=== PATIENT | male | born 1935 | race Caucasian/White ===

== ENCOUNTER 2017-12-23 07:37 | Day surgery (SDC) | payer MEDICARE, SELFPAY ==
--- NOTE | 2017-12-23 07:41 | PM.PREOP ---
Pre-operative Note Interval Note Pre-op Check: Yes History & Physical Reviewed by Physician Changes: No
[2017-12-23 10:37] VITALS: BP 154/82; PULSE 70; RESP 16; TEMP 36.3; O2SAT 95; BMI 28.1
[2017-12-23] MEDS: PROPARACAINE 0.5% OPHTH SOL 2 DROPS EYE-OP (10:45)
[2017-12-23] MEDS: CATARACT EYE COMPOUND (10 DROPS/SYRINGE) 3 DROPS EYE-OP (10:45)
[2017-12-23] MEDS: HYALURONATE SODIUM 10 MG/ML SYRINGE INJ (11:41)
[2017-12-23] MEDS: CHONDROIDTIN/SOD HYALURONATE 1.05 ML SYRINGE INTRAOCULA (11:41)
[2017-12-23] MEDS: BALANCED SALT IRRIG SOLN NO.2 15 ML IRRIG.SOLN IRR (11:41)
[2017-12-23] MEDS: OFLOXACIN 0.3% OPHTH 5 ML 2 DROPS EYE-RIGHT (11:42)
[2017-12-23] MEDS: NEOMYCIN/POLY/DEX OPHTH OINT 1 APPLIC EYE-RIGHT (11:42)
[2017-12-23] MEDS: MOXIFLOXACIN OPHTH DROPS 3 ML BOTTLE 2 DROPS INJ (11:42)
[2017-12-23] MEDS: LIDOCAINE 1% W/EPI INJ 20 ML INJ (11:42)
[2017-12-23] MEDS: BALANCED SALT IRRIG SOLN NO.2 500 ML, EPINEPHrine 1 MG IRR (11:43)
[2017-12-23] MEDS: TRIAMCINOLONE 50 MG/5 ML VIAL INJ (11:43)
[2017-12-23] MEDS: PHENYLEPHRINE/LIDOCAINE VIAL (OR) 0.2 ML EYE-OP (11:43)
[2017-12-23] MEDS: LIDOCAINE 2% 4 ML, BUPIVACAINE 0.5% (PF) 4 ML, HYALURONIDASE 150 UNIT INJ (11:43)
[2017-12-23 12:17] VITALS: BP 128/75; PULSE 65; RESP 16; TEMP 36.1; O2SAT 99
--- NOTE | 2017-12-23 16:49 | P.OP_ITS ---
Operative Date/Time/Diagnoses Date of procedure: 12/23/17 Time of procedure: 11:00 Procedure & Clinicians Procedure: Date of service:12/23/2017 Preoperative diagnoses: 1. 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 2. 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 4. Astigmatism. Postoperative diagnoses: 1. Cataract removed with Malugin ring andoric PC IOL placed. t Procedure: Complex phacoemulsification with toric posterior chamber intraocular lens implant Surgeon: Ese Hollingsworth MD Complications:none Specimen: None Implant:[id number]. Blood loss: None Anesthesia: Retrobulbar with monitored standby Anesthesiologist: Alverto Patrick M.D. Description of procedure: Patient is a male year old with decreased vision due to cataract which is affecting activities of daily living. He wants surgery to improve vision. He takes two prostate medications and had poor dilation prior to surgery. He has taken to the operating room and given topical prparacaine drops. Indelible ink markings were made at the 90 and 180 degree position. He was then givenIV sedation. A retrobulbar block insert consisting of 6 cc of 2% xylocaine without epinephrine mixed half and half with 0.5% Marcaine with 1 cc of hyaluronidase added is placed between the medial and lateral 1/3 of the inferior orbital rim. Lid akinesia is obtain with 1% xylocaine with epinephrine infiltrated along the lid margin. The eye is manually massaged for 30 sec, prepped using Betadine solution, and draped in the usual sterile fashion. Temporal approach was made, a 1 mm side-port incision was made at the 7:30 position. Phenylephrine 1.5% mixed with 1% xylocaine 0.2 cc was placed into the anterior chamber. Viscoat followed by Healon was then placed. A 2.6 mm clear incision with a 2.6 mm blade was placed at the 170 degree meridian. A 7.0 mm Malugin ring was placed into the anterior chamber and placed into position. A 360 degree capsulorrhexis style capsulotomy was then performed with a cystitome needle on a Healon. Hydrodelineation and hydrodissection were performed. The phacoemulsification unit is introduced, and sculpting notice used to groove the central lens. It is then removed in chopping mode. Epi nucleus is removed with epinuclear mode and irrigation aspiration was used to remove the peripheral cortex. The posterior capsule is polished. The intraocular lens is selected, inspected, power confirmed, and placed in the posterior chamber at the 110 degree position.. The pupil was not constricted. The wound was stromally hydrated and tested for leaks, there was none and was left sutureless. Vigamox 0.1 cc was placed into the anterior chamber. Kenalog 0.2 cc was placed in the superior subconjunctival space. A drop of antibiotic and was placed and the eye was patched and shielded. The patient was stable and returned to the recovery room in excellent condition. The iris did not flop during the procedure. Dictated by: Ese Hollingsworth MD Copy to: [facility] Same procedure as scheduled: Yes
== END 2017-12-23 12:35 | disposition home or self-care (01) ==
PROVIDERS: PCP Family Medicine Geriatric Medicine; Visit Provider Ophthalmology
DX: H25.11 Age-related nuclear cataract, right eye (principal); I10 Essential (primary) hypertension; H21.81 Floppy iris syndrome; H52.201 Unspecified astigmatism, right eye
CPT/HCPCS: J0171; J2704; J3301; J3470; V2787

== ENCOUNTER 2018-01-20 09:39 | Day surgery (SDC) | payer MEDICARE, SELFPAY ==
--- NOTE | 2018-01-20 07:31 | PM.PREOP ---
Pre-operative Note Interval Note Pre-op Check: Yes History & Physical Reviewed by Physician Changes: No
[2018-01-20 10:41] VITALS: BP 164/90; PULSE 72; RESP 18; TEMP 36.5; O2SAT 98; BMI 27.9
[2018-01-20] MEDS: PROPARACAINE 0.5% OPHTH SOL 2 DROPS EYE-OP ×2 (10:45→11:37)
[2018-01-20] MEDS: CATARACT EYE COMPOUND (10 DROPS/SYRINGE) 3 DROPS EYE-OP (10:50)
--- NOTE | 2018-01-20 11:27 | SUR.OPER ---
Supine on eye stretcher, head on extension cradle secured with tape. Arms tucked at sides with blanket. Pillow under knees.
[2018-01-20] MEDS: PHENYLEPHRINE/LIDOCAINE VIAL (OR) 0.2 ML EYE-OP (11:36)
[2018-01-20] MEDS: MOXIFLOXACIN OPHTH DROPS 3 ML BOTTLE 2 DROPS INJ (11:36)
[2018-01-20] MEDS: TRIAMCINOLONE 50 MG/5 ML VIAL INJ (11:36)
[2018-01-20] MEDS: NEOMYCIN/POLY/DEX OPHTH OINT 1 APPLIC EYE-LEFT (11:37)
[2018-01-20] MEDS: BALANCED SALT IRRIG SOLN NO.2 15 ML IRRIG.SOLN IRR (11:37)
[2018-01-20] MEDS: OFLOXACIN 0.3% OPHTH 5 ML 2 DROPS EYE-LEFT (11:38)
[2018-01-20] MEDS: BALANCED SALT IRRIG SOLN NO.2 500 ML, EPINEPHrine 1 MG IRR (11:38)
[2018-01-20] MEDS: LIDOCAINE 2% 4 ML, BUPIVACAINE 0.5% (PF) 4 ML, HYALURONIDASE 150 UNIT INJ (11:39)
[2018-01-20] MEDS: CARBACHOL 1.5 ML VIAL INJ (11:40)
[2018-01-20] MEDS: HYALURONATE SODIUM 10 MG/ML SYRINGE INJ (11:40)
[2018-01-20] MEDS: LIDOCAINE 1% W/EPI INJ 20 ML INJ (11:41)
[2018-01-20 12:06] VITALS: BP 122/78; PULSE 60; RESP 16; TEMP 36.1; O2SAT 98
--- NOTE | 2018-01-20 16:07 | PM.OP.1 ---
Operative Date/Time/Diagnoses Date of procedure: 01/20/18 Time of procedure: 11:45 Procedure & Clinicians Procedure: Date of service: January 20, 2018 Preoperative diagnoses:1. Nuclear sclerotic cortical cataract. CataractPostoperative diagnoses:1. Cataract []Procedure: Phacoemulsification with posterior chamber intraocular lens implantSurgeon: ROLY Lockomplications: []Specimen: NoneImplant: []Blood loss: NoneAnesthesia: Retrobulbar with monitored standbyAnesthesiol 2. The significant astigmatism which he elects to correct with a toric intra-ocular lens implant.3. Probable floppy iris due to sympathomemetic used.: Anesthesiologist Tad Senior M.D.Description of procedure: Patient is a 82 year old male with decreased vision due to cataract which is affecting activities of daily living. He wants surgery to improve vision.He has taken to the operating room and given IV sedation. A retrobulbar block insert consisting of 6 cc of 2% xylocaine without epinephrine mixed half and half with 0.5% Marcaine with 1 cc of hyaluronidase added is placed between the medial and lateral 1/3 of the inferior orbital rim. Lid akinesia is obtain with 1% xylocaine with epinephrine infiltrated along the lid margin. The eye is manually massaged for 30 sec, prepped using Betadine solution, and draped in the usual sterile fashion.Temporal approach was made, a 1 mm side-port incision was made at the 12 oclock meridian. Phenylephrine 1.5% mixed with 1% xylocaine 0.2 cc was placed into the anterior chamber. Viscoat followed by Bonita was then placed. A 2.6 mm clear incision with a 2.6 mm blade was placed at the 3 oclock meridian. Pupil was of adequate size and a Malyugin ring was not placed. A 360 degree capsulorrhexis style capsulotomy was then performed with a cystitome needle on a Healon. Hydrodelineation and hydrodissection were performed. The phacoemulsification unit is introduced, and sculpting notice used to groove the central lens. It is then removed in chopping mode. The iris was mildly floppy could be maintained with viscoelastic. Epi nucleus is removed with epinuclear mode and irrigation aspiration was used to remove the peripheral cortex. The posterior capsule is polished. The intraocular lens is selected, inspected, power confirmed, and placed in the posterior chamber at the 75 degree meridian. The pupil was not constricted. The wound was stromally hydrated and tested for leaks, there was none and was left sutureless. Vigamox 0.1 cc was placed into the anterior chamber. Kenalog 0.2 cc was placed in the superior subconjunctival space. A drop of antibiotic and was placed and the eye was patched and shielded. The patient was stable and returned to the recovery room in excellent condition.Dictated by: German Lock to: [facility] Same procedure as scheduled: Yes
== END 2018-01-20 12:20 ==
LOC: OR 09:41
PROVIDERS: PCP Family Medicine Geriatric Medicine; Visit Provider Ophthalmology
DX: H25.12 Age-related nuclear cataract, left eye (principal); H26.8 Other specified cataract; I10 Essential (primary) hypertension; H21.81 Floppy iris syndrome
CPT/HCPCS: J0171; J2704; J3301; J3470; V2787

== ENCOUNTER → 2018-06-01 19:35 | Outpatient (REF) | payer MEDICARE, SELFPAY ==
[2018-06-01 20:29] LABS: Alanine Aminotransferase 38 IU/L (21-72); Albumin 4.5 g/dL (3.5-5.0); Albumin Globulin Ratio 1.5 (1.0-2.8); Alkaline Phosphatase 54 U/L (38-126); Aspartate Aminotransferase 28 IU/L (17-59); BUN Creatinine Ratio 16.9 (6-22); Bilirubin Total 0.9 mg/dL (0.2-1.3); Blood Urea Nitrogen 22 mg/dL (9-20); Carbon Dioxide 27 mmol/L (22-32); Chloride 104 mmol/L (98-107); Cholesterol 170 mg/dL (140-199); Estimated Glomerular Filt Rate 52.9 mL/min (>60); Globulin 3.1 g/dL (1.7-4.1); Glucose 129 mg/dL (80-110); HDL Cholesterol 41 mg/dL (40-60); HEMOLYSIS < 15 (0-50); LDL Cholesterol Calculated 105 mg/dL (<100); Potassium 4.3 mmol/L (3.4-5.1); Sodium 142 mmol/L (137-145); Total Protein 7.6 g/dL (6.3-8.2); Triglycerides 119 mg/dL (35-150)
[2018-06-01 20:33] LABS: Add Manual Diff / Slide Review NO; Basophils Absolute Auto 0 /uL (0-100); Basophils Percent Auto 0.4 % (0-2); Eosinophils Absolute Auto 300 /uL (0-450); Eosinophils Percent Auto 5.3 % (2-4); Hematocrit 50.8 % (41-53); Hemoglobin 16.9 g/dL (13.5-17.5); Lymphocytes Absolute Auto 1600 /uL (1100-4500); Lymphocytes Percent Auto 25.8 % (25-40); Mean Corpuscular HGB Conc 33.3 % (30-36); Mean Corpuscular Hemoglobin 30.9 PG (26-34); Mean Corpuscular Volume 92.9 fL (80-100); Monocytes Absolute Auto 500 /uL (0-900); Monocytes Percent Auto 8.1 % (3-14); Neutrophils Absolute Auto 3700 /uL (1500-7000); Neutrophils Percent Auto 60.4 % (50-75); Platelet Count 187 X10^3/uL (150-400); Red Blood Cell Count 5.46 X10^6/uL (4.5-5.9); White Blood Cell Count 6.1 X10^3/uL (4.5-11.0)
[2018-06-01 20:59] LABS: Hemoglobin A1C% w Est Avg Glu 6.5 % (4.0-6.0)
== END ==
LOC: LAB 19:35
PROVIDERS: Visit Provider Family Medicine Geriatric Medicine
DX: I10 Essential (primary) hypertension (principal); E78.5 Hyperlipidemia, unspecified; E11.9 Type 2 diabetes mellitus without complications
CPT/HCPCS: 36415; 80053; 80061; 83036; 85025

== ENCOUNTER → 2018-06-11 17:53 | Outpatient (REF) | payer MEDICARE, OTHER, SELFPAY | LOC: LAB 17:53 | PROVIDERS: Visit Provider Family Medicine Geriatric Medicine | DX: D48.5 Neoplasm of uncertain behavior of skin (principal) | CPT/HCPCS: 88305 ==